=== PATIENT | male | born 1990 | race Caucasian/White ===

== ENCOUNTER 2017-02-05 15:05 | Emergency (ER) | payer OTHER ==
[~2017-02-05 15:05] MED LIST: BENADRYL25 MG PO; DICLOFENAC PO; KEPPRA500 M2 PO; METHADONE10 MG/5 ML PO; ORUDIS75 M1 PO; TYLENOL325 M1 PO; VOLTAREN75 MG PO
[2017-02-05] MEDS ORDERED: NO MEDICATIONS (15:14)
[2017-02-05 15:45] LABS: URINE SOURCE CLEAN CATCH
[2017-02-05 15:48] LABS: MICRO INDICATED? NO; URINE APPEARANCE CLEAR; URINE BILIRUBIN NEG (NEG); URINE BLOOD NEG (NEG); URINE COLOR YELLOW; URINE GLUCOSE NEG (NORM); URINE KETONE NEG (NEG); URINE LEUKOCYTE ESTERASE NEG (NEG); URINE NITRATE NEG (NEG); URINE PH 5.5 (5-8); URINE PROTEIN NEG (NEG); URINE SPECIFIC GRAVITY >=1.030 (1.003-1.035)
[2017-02-05 16:04] LABS: BUN/CREATININE RATIO 16.25; CALCIUM SERUM 8.5 mg/dL (8.4-10.2); CREATININE SERUM 0.8 mg/dL (0.6-1.4); GLOM FILT RATE Estimated 123.3 mL/min (>60); POTASSIUM 3.7 mmol/L (3.5-5.1)
== END 2017-02-05 17:01 | disposition home or self-care (01) ==
LOC: SED 15:05
PROVIDERS: Emergency Medicine
DX: R10.9 Unspecified abdominal pain (principal); R11.2 Nausea with vomiting, unspecified; R19.7 Diarrhea, unspecified; Z88.8 Allergy status to other drugs, medicaments and biological substances
CPT/HCPCS: 36415; 80048; 81003; 96361; 96374; 96375; 99284; J2405

== ENCOUNTER 2017-02-18 | Emergency (ER) | payer SELFPAY ==
[~2017-02-18] MED LIST changes: +NO MEDICATIONS
== END 2017-02-18 06:44 | disposition home or self-care (01) ==
LOC: CED
DX: F11.129 Opioid abuse with intoxication, unspecified (principal); F15.129 Other stimulant abuse with intoxication, unspecified; F17.210 Nicotine dependence, cigarettes, uncomplicated; Z88.8 Allergy status to other drugs, medicaments and biological substances
CPT/HCPCS: 96361; 96374; 96375; 99284; J2310; J2405